=== PATIENT | male | born 1965 | race Caucasian/White ===

== ENCOUNTER → 2018-08-04 12:58 | Outpatient (CLI) | payer MEDICAID, SELFPAY ==
--- NOTE | 2018-08-04 13:02 | CA_ITS ---
PROCEDURE: 2-D M-mode and color Doppler study INDICATIONS FOR THE TEST: Chest pain X COPD Heart Murmur Tobacco SmokingX Palpitations Fatigue Syncope Edema Hypertension Diabetes MellitusX Rheumatic Fever SOB CURTIS Obesity Hyperlipidemia Family History HD Additional History CAD, CVA,MULTIPLE STENTS PATIENT INFORMATION HEIGHT: 70 WEIGHT:212 GENDER: Male B/P:124/55 2-D/M-MODE INTERPRETATION: 2-D MEASUREMENTS OBSERVED VALUES IN CMS Right Ventricular Dimension (RVDd) 2.4 Interventricular Septum (Thickness)(IVsd) .9 Left Ventricular Internal Dimensions(LVIDd) 5.5 Left Ventricular Posterior Wall (Thickness)(LVPWd) .9 Aortic Root 3.9 Aortic Cusp Separation 1.6 Left Atrial Dimensions (LAD) 2.4 2D 1. Left atrium is mildly enlarged, left ventricle is mildly dilated, there is severely reduced left ventricular systolic function, visually estimated ejection fraction approximately 20-25%, there is marked hypo to akinesis involving mid to distal septum, anterior, anteroapical, and anterolateral wall. 2. The right atrium and right ventricle are normal size and contractility. 3. The aortic valve is minimally thickened and fibrosed. 4. The mitral and tricuspid valve leaflets are minimally thickened and calcified. 5. The pulmonic valve is poorly visualized. 6. No significant pericardial effusion noted. DOPPLER INTERROGATION: Doppler interrogation of the aortic, mitral and tricuspid valvular presence of mild mitral and tricuspid regurgitation, tricuspid regurgitation jet velocity is insufficient for calculation of the right ventricular systolic pressure, grade 1 diastolic dysfunction seen without tissue Doppler evidence of raised left atrial pressure. CONCLUSION: 1. Mildly enlarged left atrium, mildly dilated left ventricle, severely reduced left ventricular systolic function, visually estimated ejection fraction of 20-25%, with segmental wall motion abnormality described above. Grade 1 diastolic dysfunction seen without tissue Doppler evidence of raised left atrial pressure. 2. Mild mitral and tricuspid regurgitation 3. No significant pericardial effusion noted
== END ==
PROVIDERS: Family Provider Internal Medicine Adolescent Medicine; PCP Internal Medicine Adolescent Medicine; Visit Provider Internal Medicine Cardiovascular Disease
DX: R07.9 Chest pain, unspecified (principal)
CPT/HCPCS: 93306

== ENCOUNTER → 2019-02-08 12:10 | Outpatient (CLI) | payer MEDICAID, SELFPAY ==
--- NOTE | 2019-02-08 12:17 | XR_ITS ---
XR shoulder RT min 2V HISTORY: Right shoulder pain ITS.REASON: DYSFUNCTION OF RIGHT ROTATOR CUFF ORDERING PHYSICIAN: Bibiana Snyder PATIENT AGE: 53 years Comparison: None FINDINGS: No obvious fracture or dislocation. There is cortical irregularity involving the distal aspect of the clavicle at the acromioclavicular joint. This is nonspecific and could be seen with rheumatoid arthritis. No subacromial stenosis or significant osteophyte formation. IMPRESSION: 1 negative glenohumeral joint. 2. Irregularity of the distal aspect of the clavicle which may be seen with rheumatoid arthritis
== END ==
PROVIDERS: PCP Internal Medicine Adolescent Medicine; Visit Provider Nurse Practitioner Family
DX: M67.911 Unspecified disorder of synovium and tendon, right shoulder (principal)
CPT/HCPCS: 73030

== ENCOUNTER → 2019-02-23 07:47 | Outpatient (CLI) | payer MEDICAID, SELFPAY | PROVIDERS: PCP Nurse Practitioner Family; Visit Provider Nurse Practitioner Family | DX: M67.911 Unspecified disorder of synovium and tendon, right shoulder (principal) ==

== ENCOUNTER → 2019-02-24 07:55 | Outpatient (CLI) | payer MEDICAID, SELFPAY ==
--- NOTE | 2019-02-24 07:57 | MR_ITS ---
MR shoulder RT wo con COMPARISON: None HISTORY: Right shoulder pain with limited range of motion, rotator cuff disease ORDERING PHYSICIAN: Bibiana Snyder APRN PATIENT AGE: 53 years TECHNIQUE: Routine multiplanar multiecho sequences are performed without contrast. COMPARISON: 02/08/2019 radiograph FINDINGS: There is mild motion artifact which somewhat obscures fine detail. Mild hypertrophic changes are present at the acromioclavicular junction. There is some slight increased T2 signal within a thickened supraspinatus tendon consistent with tendinopathy/tendinosis. There is a small focal linear area of increased signal within the infraspinatus tendon suggesting a partial tear. A complete tear with tendinous or muscle retraction is not identified. The subscapularis and teres minor tendons are intact. There does appear to be a tear of the anterior and superior glenoid labrum best detected on the coronal images. Fluid is present within the bicipital tendon sheath. The bicipital tendon is in satisfactory position. No fracture or dislocation. IMPRESSION: 1. Tendinopathy/tendinosis of the supraspinatus and infraspinatus tendons with a partial longitudinal intrasubstance tear of the infraspinatus tendon 2. SLAP tear of the anterior and superior glenoid labrum nondisplaced. 3. Mild acromioclavicular arthropathy 4. Moderate amount fluid within the bicipital tendon sheath consistent with tendinitis
== END ==
PROVIDERS: PCP Nurse Practitioner Family; Visit Provider Nurse Practitioner Family
DX: M67.911 Unspecified disorder of synovium and tendon, right shoulder (principal)
CPT/HCPCS: 73221

== ENCOUNTER → 2020-08-24 13:26 | Outpatient (CLI) | payer OTHER, SELFPAY | PROVIDERS: PCP Internal Medicine Adolescent Medicine; Visit Provider Internal Medicine Adolescent Medicine | DX: Z03.818 Encounter for observation for suspected exposure to other biological agents ruled out (principal); R05 Cough | CPT/HCPCS: U0003 ==

== ENCOUNTER → 2021-04-04 15:43 | Outpatient (CLI) | payer MEDICARE, OTHER, SELFPAY ==
--- NOTE | 2021-04-04 15:50 | XR_ITS ---
PROCEDURE: XR FOREARM LT 2V CLINICAL INDICATION: LT FOREARM PAIN, CELLULITIS OF LT FOREARM COMPARISON: No exams were available for comparison FINDINGS: No fracture or dislocation. No lytic or blastic change. There is normal mineralization. The joint spaces are well-preserved. No significant degenerative/arthritic changes. No erosive changes evident. Other findings:There is a small metallic density within the soft tissues overlying the anterior and lateral aspect the left forearm consistent with a foreign body. This measures 3 mm. IMPRESSION: Metallic foreign body in the mid aspect of the left forearm laterally and anteriorly. Dictated by: Harman Grayson MD 04/04/2021 16:37 Harman Grayson MD in [place] 04/04/2021 16:37
== END ==
PROVIDERS: PCP Nurse Practitioner Family; Visit Provider Nurse Practitioner Family
DX: M79.632 Pain in left forearm (principal); L03.114 Cellulitis of left upper limb
CPT/HCPCS: 73090

== ENCOUNTER → 2021-05-05 09:15 | Outpatient (CLI) | payer MEDICARE, OTHER, SELFPAY ==
[2021-05-05 10:13] LABS: Hemoglobin A1C 9.6 % (4.0-6.0)
[2021-05-05 10:22] LABS: Alanine Aminotransferase 12 U/L (12-78); Albumin Level 4.3 g/dl (3.5-5.0); Albumin/Globulin Ratio 1.8 (1.1-1.8); Alkaline Phosphatase 131 U/L (38-126); Aspartate Amino Transferase 16 U/L (17-59); Bilirubin,Total 1.2 mg/dl (0.2-1.3); Blood Urea Nitrogen 14 mg/dl (9-20); Calcium 9.3 mg/dl (8.4-10.2); Carbon Dioxide 28 mmol/L (22.0-30.0); Chloride 104 mmol/L (98-107); Chol/HDL Ratio 3.5 (1-3.5); Cholesterol 163 mg/dl (140-200); Estimated Glomerular Filt Rate 69 ml/min (>60); GFR (African American) 84 ML/MIN (>60); Globulin 2.4 g/dL (1.3-3.2); Glucose 234 mg/dl (74-100); HDL Cholesterol 46 mg/dl (40-60); Sodium 140 mmol/L (136-145); Total Protein,Serum 6.7 g/dl (6.3-8.2); Triglycerides 118 mg/dl (30-150); VLDL Cholesterol 24 mg/dL (0-40)
== END ==
PROVIDERS: Visit Provider Nurse Practitioner Family
DX: I10 Essential (primary) hypertension (principal); E11.65 Type 2 diabetes mellitus with hyperglycemia; Z86.79 Personal history of other diseases of the circulatory system; Z79.84 Long term (current) use of oral hypoglycemic drugs
CPT/HCPCS: 36415; 80053; 80061; 83036

== ENCOUNTER → 2022-11-05 10:04 | Outpatient (POV) | payer MEDICARE, OTHER, SELFPAY | PROVIDERS: Visit Provider Dermatology | DX: Z00.00 Encounter for general adult medical examination without abnormal findings (principal) ==

== ENCOUNTER → 2023-05-14 07:02 | Outpatient (CLI) | payer MEDICARE, SELFPAY ==
[2023-05-14 07:27] LABS: Basophils # 0.1 K/mm3 (0-0.2); Eosinophils # 0.2 K/mm3 (0.0-0.4); Eosinophils % 2.8 % (0.1-12.0); Hematocrit 42.6 % (42.0-52.0); Hemoglobin 14.2 g/dL (14.1-18.0); Lymphocytes % 28.4 % (10-50); Mean Corpuscular HGB Conc 33.3 g/dL (31.8-35.4); Mean Corpuscular Hemoglobin 28.2 pg (27.0-31.2); Mean Corpuscular Volume 84.7 fl (80-94); Mean Platelet Volume 7.7 fl (7.4-10.4); Monocytes # 0.5 K/mm3 (0.1-1.0); Monocytes % 6.6 % (1.7-9.3); Neutrophils # 4.4 K/mm3 (1.8-7.8); Neutrophils % 61.2 % (37.0-80.0); Platelet Count 268 K/mm3 (142-424); Red Blood Count 5.03 M/mm3 (4.60-6.20); Red Cell Distribution Width 14.5 % (11.5-17.5); White Blood Count 7.2 K/mm3 (4.8-10.8)
[2023-05-14 08:12] LABS: Alanine Aminotransferase 21 U/L (12-78); Albumin Level 4.2 g/dl (3.5-5.0); Albumin/Globulin Ratio 1.8 (1.1-1.8); Alkaline Phosphatase 113 U/L (38-126); Anion Gap 10.1 mEq/L (5-15); Aspartate Amino Transferase 23 U/L (17-59); Bilirubin,Total 1.5 mg/dl (0.2-1.3); Blood Urea Nitrogen 14 mg/dl (9-20); Calcium 8.9 mg/dl (8.4-10.2); Carbon Dioxide 25 mmol/L (22.0-30.0); Chloride 106 mmol/L (98-107); Chol/HDL Ratio 3.1 (1-3.5); Cholesterol 132 mg/dl (140-200); Estimated Glomerular Filt Rate 77 ml/min (>60); GFR (African American) 93 ML/MIN (>60); Globulin 2.4 g/dL (1.3-3.2); Glucose 247 mg/dl (74-100); HDL Cholesterol 43 mg/dl (40-60); Potassium 4.1 mmoL/L (3.5-5.1); Sodium 137 mmol/L (136-145); Total Protein,Serum 6.6 g/dl (6.3-8.2); Triglycerides 148 mg/dl (30-150); VLDL Cholesterol 30 mg/dL (0-40)
[2023-05-14 08:24] LABS: Direct LDL Cholesterol 64.64 mg/dL (100-129)
[2023-05-14 09:11] LABS: Creatinine,Urine Random 79 mg/dL (Not Estab.)
[2023-05-14 09:18] LABS: Microalbumin/Creatinine Ratio 17.5
== END ==
PROVIDERS: PCP Nurse Practitioner Family; Visit Provider Nurse Practitioner Family
DX: I10 Essential (primary) hypertension (principal); E11.65 Type 2 diabetes mellitus with hyperglycemia; Z79.84 Long term (current) use of oral hypoglycemic drugs; Z86.79 Personal history of other diseases of the circulatory system
CPT/HCPCS: 36415; 80053; 80061; 82043; 82570; 83036; 85025

== ENCOUNTER → 2023-05-15 10:12 | Outpatient (CLI) | payer MEDICARE, SELFPAY ==
--- NOTE | 2023-05-15 10:23 | XR_ITS ---
FINAL REPORT CLINICAL HISTORY: RT FOOT PAIN FINDINGS: RIGHT FOOT SERIES Three views of the right foot were obtained. There is no acute fracture or dislocation. There are mild degenerative change. There is no soft tissue abnormality. There is a plantar calcaneal spur. A pes planus deformity is noted. IMPRESSION: Mild degenerative change as stated above. Reviewed, Interpreted and Dictated by Marcial Perez III, MD Transcribed by Shaina Somers Authenticated and [facility]
--- NOTE | 2023-05-15 10:23 | XR_ITS ---
FINAL REPORT CLINICAL HISTORY: LT FOOT PAIN FINDINGS: LEFT FOOT SERIES Three views of the left foot were obtained. There is no acute fracture or dislocation. There are mild degenerative change. There is no soft tissue abnormality. There is a plantar calcaneal spur. A pes planus deformity is noted. IMPRESSION: Mild degenerative change as stated above. Reviewed, Interpreted and Dictated by Marcial Perez III, MD Transcribed by Shaina Somers Authenticated and . [facility]
== END ==
LOC: RAD 10:14
PROVIDERS: PCP Nurse Practitioner Family; Visit Provider Nurse Practitioner Family
DX: M79.671 Pain in right foot (principal); M79.672 Pain in left foot
CPT/HCPCS: 73630

== ENCOUNTER 2024-02-19 07:40 | Outpatient (CLI) | payer MEDICARE, SELFPAY ==
--- NOTE | 2024-02-19 07:54 | XR_ITS ---
FINAL REPORT CLINICAL HISTORY: LT KNEE PAIN COMPARISON: None FINDINGS: LEFT KNEE 3 views of the left knee were obtained. There is no acute fracture or dislocation. There is mild narrowing of the medial compartment joint space. Soft tissues are unremarkable. IMPRESSION: Mild degenerative change without acute bony abnormality. Reviewed, Interpreted and Dictated by Taz Vernon MD Transcribed by Norma Angel Authenticated and [facility]
== END 2024-02-19 23:59 ==
LOC: RAD 07:43
PROVIDERS: PCP Nurse Practitioner Family; Visit Provider Nurse Practitioner Family
DX: M25.562 Pain in left knee (principal)
CPT/HCPCS: 73562

== ENCOUNTER 2024-12-30 09:04 | Emergency (ER) | payer MEDICARE, SELFPAY ==
[2024-12-30 09:04] VITALS: BP 138/82; PULSE 88; RESP 18; TEMP 36.6; O2SAT 98; BMI 29.0
--- NOTE | 2024-12-30 09:08 | ECG_ITS ---
APPROVED REPORT Exam: Resting ECG HR:82 bpm ECG Measurements Heart Rate 82 AXES MN 140 P 75 QRSd 109 QRS 60 QT 357 T 88 QTc 395 Conclusion SINUS RHYTHM WITH OCCASIONAL VENTRICULAR PREMATURE COMPLEXES POSSIBLE ANTERIOR MYOCARDIAL INFARCTION , PROBABLY OLD [30 ms Q WAVE IN V3/V4, OR R < 0.2 mV IN V4] No STEMI Electronically signed by : CORBY MODI, 12/31/2024 07:08:35
--- NOTE | 2024-12-30 09:10 | PC.NURSE ---
RADIOLOGY NOTIFIED OF STROKE PROTOCOL
--- NOTE | 2024-12-30 09:10 | PC.NURSE ---
FSBS is 279 at this time.
--- NOTE | 2024-12-30 09:13 | CT_ITS ---
FINAL REPORT CLINICAL HISTORY: STROKE SYMPTOMS COMPARISON: None FINDINGS: CT NECK ANGIO, WITHOUT AND WITH CONTRAST TECHNIQUE: Thin section axial CT with contrast with multiplanar 3D MIP reconstruction. This study was performed with techniques to keep radiation doses as low as reasonably achievable, (ALARA). Individualized dose reduction techniques using automated exposure control or adjustment of mA and/or kV according to the patient's size were employed. NASCET criteria and technique was utilized during interpretation. FINDINGS: Aortic arch: Arch shows no significant narrowing. Great vessel origins are widely patent. Right carotid: Minimal plaque is present in the right common and internal carotid arteries without significant stenosis. Left carotid: There is mild proximal ICA stenosis of 20 to 30%. Vertebrals: Left vertebral artery is dominant. No significant stenosis is present. IMPRESSION: No significant stenosis of the cervical carotid arteries This study was performed using automated techniques to achieve radiation exposure as low as reasonably Reviewed, Interpreted and Dictated by Odette Laurent MD Transcribed by Jemma Ceja Authenticated and . [facility]
--- NOTE | 2024-12-30 09:13 | CT_ITS ---
FINAL REPORT TECHNIQUE: Noncontrast exam This study was performed with techniques to keep radiation doses as low as reasonably achievable, (ALARA). Individualized dose reduction techniques using automated exposure control or adjustment of mA and/or kV according to the patient's size were employed. CLINICAL HISTORY: STROKE SYMPTOMS COMPARISON: None FINDINGS: CT HEAD: There are small chronic lacunar infarcts noted in the basal ganglia bilaterally, more prominent on the left than on the right. No acute areas of abnormal density are visualized. Ventricles are normal. There is no hemorrhage. No mass effect is seen. Bone windows show no evidence of fracture. IMPRESSION: No acute findings. Small bilateral chronic lacunar infarcts, more prominent on the left than on the right. Reviewed, Interpreted and Dictated by Odette Laurent MD Transcribed by Jemma Ceja Authenticated and [facility]
--- NOTE | 2024-12-30 09:14 | PC.NURSE ---
PT TO CT VIA WC
--- NOTE | 2024-12-30 09:15 | PC.NURSE ---
patient gone to CT at this time.
--- NOTE | 2024-12-30 09:17 | CT_ITS ---
FINAL REPORT CLINICAL HISTORY: L weakness, slurred speech COMPARISON: None FINDINGS: CTA HEAD TECHNIQUE: Thin section axial CT with contrast with 3D MIP reconstruction This study was performed with techniques to keep radiation doses as low as reasonably achievable, (ALARA). Individualized dose reduction techniques using automated exposure control or adjustment of mA and/or kV according to the patient's size were employed. FINDINGS: No aneurysm is seen. Major intracranial vessels are patent without significant stenosis. . IMPRESSION: Unremarkable This study was performed using automated techniques to achieve radiation exposure as low as reasonably achievable Reviewed, Interpreted and Dictated by Odette Laurent MD Transcribed by Jemma Ceja Authenticated and [facility]
[2024-12-30 09:23] LABS: Basophils # 0.1 K/mm3 (0-0.2); Basophils % 0.5 % (0.1-2.0); Eosinophils # 0.1 K/mm3 (0.0-0.4); Eosinophils % 1.3 % (0.1-12.0); Hematocrit 42.6 % (42.0-52.0); Hemoglobin 14.5 g/dL (14.1-18.0); Lymphocytes # 1.6 K/mm3 (0.7-4.5); Mean Corpuscular Hemoglobin 27.6 pg (27.0-31.2); Mean Platelet Volume 9.2 fl (7.4-10.4); Monocytes # 0.6 K/mm3 (0.1-1.0); Monocytes % 6.9 % (1.7-9.3); Neutrophils # 6.6 K/mm3 (1.8-7.8); Neutrophils % 72.1 % (37.0-80.0); Platelet Count 256 K/mm3 (142-424); Red Blood Count 5.26 M/mm3 (4.60-6.20); Red Cell Distribution Width 13.8 % (11.5-17.5); White Blood Count 9.1 K/mm3 (4.8-10.8)
[2024-12-30 09:30] LABS: Alanine Aminotransferase 20 U/L (12-78); Albumin Level 4.6 g/dl (3.5-5.0); Albumin/Globulin Ratio 1.8 (1.1-1.8); Alkaline Phosphatase 115 U/L (38-126); Anion Gap 11.3 mEq/L (5-15); Aspartate Amino Transferase 26 U/L (17-59); Bilirubin,Total 2.1 mg/dl (0.2-1.3); Blood Urea Nitrogen 15 mg/dl (9-20); Calcium 9.5 mg/dl (8.4-10.2); Carbon Dioxide 26 mmol/L (22.0-30.0); Chloride 103 mmol/L (98-107); Cholesterol 181 mg/dl (140-200); Creatinine Clearance Estimated 98 mL/min (50-200); Estimated Glomerular Filt Rate 68 ml/min (>60); Ethyl Alcohol < 10 mg/dl (0-10); GFR (African American) 83 ML/MIN (>60); Globulin 2.6 g/dL (1.3-3.2); Glucose 269 mg/dl (74-100); HDL Cholesterol 36 mg/dl (40-60); Potassium 4.3 mmoL/L (3.5-5.1); Sodium 136 mmol/L (136-145); Total Protein,Serum 7.2 g/dl (6.3-8.2); Triglycerides 96 mg/dl (30-150); VLDL Cholesterol 19 mg/dL (0-40)
[2024-12-30] MEDS: IOPAMIDOL-370 (76%);100ML BOTTLE 80 ML IV (09:30)
[2024-12-30] MEDS: SODIUM CHLORIDE 0.9% 10ML SYR (RAD ONLY) 10 ML IV (09:30)
[2024-12-30] MEDS: 0.9 % SODIUM CHLORIDE 50 ML VIAL IV (09:30)
--- NOTE | 2024-12-30 09:30 | PC.NURSE ---
patient back in room at this time.
[2024-12-30 09:41] LABS: Direct LDL Cholesterol 94.92 mg/dL (100-129)
--- NOTE | 2024-12-30 09:47 | PC.NURSE ---
ROUNDED ON PT, WATCHING TV. NO NEEDS AT THIS TIME. CALL LIGHT WITHIN REACH
[2024-12-30 09:50] LABS: Troponin I < 0.01 ng/ml (0.00-0.034)
--- NOTE | 2024-12-30 09:50 | PC.NURSE ---
Rounded on patient, pillow given at this time.
[2024-12-30 09:51] LABS: Activated Partial Thrombo Time 27.1 seconds (22.8-30.6); Prothrombin Time 11.2 seconds (10.1-12.5)
[2024-12-30 10:00] VITALS: BP 122/73; PULSE 77; RESP 22; O2SAT 100
--- NOTE | 2024-12-30 10:23 | MR_ITS ---
FINAL REPORT TECHNIQUE: Multiplanar MR without contrast CLINICAL HISTORY: new L weakness, slurred speech, stroke eval COMPARISON: None FINDINGS: Diffusion sequences show a 10 mm acute infarct in the right lateral lavonne. No associated hemorrhage is identified. Scattered scattered chronic lacunar infarcts and mild changes of microvascular disease are present bilaterally. Moderate generalized atrophy is present. No mass, hemorrhage or edema is seen. Ventricles are normal. Major vascular flow voids are intact. IMPRESSION: Acute infarct in the right lateral lavonne measuring 10 mm in size. Scattered chronic lacunar infarcts and mild changes of ischemic microvascular disease bilaterally. Reviewed, Interpreted and Dictated by Odette Laurent MD Transcribed by Jemma Ceja Authenticated and [facility]
--- NOTE | 2024-12-30 10:24 | PC.NURSE ---
SPOKE WITH FERNY IN CARE MANAGEMENT FOR OK FOR BRAIN MRI
--- NOTE | 2024-12-30 10:27 | HMH.EDGENADL ---
Discharge Plan Disposition Patient Disposition: Home, Self-Care Condition: Good Prescriptions Prescriptions: No Action Jardiance 25 mg tablet PO Tradjenta 5 mg tablet PO carvedilol 3.125 mg tablet PO rosuvastatin 10 mg tablet PO Patient Comments: TAKE ONE TABLET BY MOUTH EVERY DAY losartan 25 mg tablet PO Patient Comments: TAKE ONE TABLET BY MOUTH EVERY DAY aspirin 325 MG tablet 325 mg PO DAILY clopidogrel 75 MG tablet 75 mg PO DAILY Patient Comments: take 1 tablet by mouth once daily Referrals Follow up/Referrals: Kike Ruth MD [Staff Physician] - See instructions Provider,MD Keli [Primary Care Provider] - See instructions Activity Restrictions/Add. Instructions Additional Instructions/Restrictions: You were evaluated in the emergency department today and diagnosed with an acute stroke. Please follow-up closely with cardiology as well as with primary care. Continue taking your medications at home as prescribed. Return to the emergency department for new or worsening symptoms. Clinical Impressions Clinical Impression: Right pontine CVA Instructions Patient Instructions: DI for Stroke-Ischemic Print Language Print Language: Khmer Discharge ED Provider: Naomi Cristobal General Adult HPI General Chief complaint: Neuro Symptoms/Deficit Stated complaint: weakness L side, poss stroke Time Seen by Provider: 12/30/24 09:18 Mode of Arrival: Wheelchair Source of Information: Patient Limitations: No Limitations Description of Symptoms (Recalled from ER Triage Doc. by RN): PT REPORTS WORSENING LEFT SIDED WEAKNESS. REPORTS LEFT ARM AND LEG WEAKNESS THAT STARTED 2 DAYS AGO. REPORTS TODAY THAT SPEECH IS SLURRED AND LEFT SIDE OF FACE HAS DROOP REPORTS HX OF TIA. PT MOVES ALL EXTREMITIES. 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 DROOP NOTED ON LEFT SIDE OF FACE WHEN SMILING History of Present Illness HPI narrative: This patient is a 59-year-old male with a history of prior CVA, CAD status post CABG, type 2 diabetes, hypertension, hyperlipidemia presenting to the emergency department for evaluation with concern for left-sided weakness and slurred speech. Patient states that he has had intermittent issues with his left leg/dragging his heel for quite a while now, however he had new sensation of numbness and tingling all along the entire left side of his body and slurred speech that started 2 days ago. He states that he feels like he has restless legs on the whole left side of his body. Symptoms have improved a little bit, but he still feels like something is off over there and feels like he is trying to move his arm and leg to wake them up. No headache, vision changes, chest pain, abdominal pain, back pain, or other concerns. Related Data Home Medications ?Medication ?Instructions ?Recorded ?Confirmed aspirin 325 mg tablet 325 mg PO DAILY [facility] 05/28/18 03/09/24 clopidogrel 75 mg tablet 75 mg PO DAILY [facility] 05/28/18 03/09/24 carvedilol 3.125 mg tablet mg PO 03/09/24 03/09/24 empagliflozin 25 mg tablet mg PO 03/09/24 03/09/24 (Jardiance) linagliptin 5 mg tablet (Tradjenta) mg PO 03/09/24 03/09/24 losartan 25 mg tablet mg PO 03/09/24 03/09/24 rosuvastatin 10 mg tablet mg PO 03/09/24 03/09/24 Allergies Allergy/AdvReac Type Severity Reaction Status Date / Time codeine (CODEINE) Allergy Unknown Verified 03/09/24 09:11 [facility] Disclaimer: The information contained in this section may have been updated after the patient was seen, as this information can be updated by other users. Social History Smoking Status: Current every day smoker alcohol intake: never current occupational status: other Travel in the last 8 weeks: None ROS Obtained: Yes All systems reviewed & no additional complaints except as documented Physical Exam General General appearance: alert and in no apparent distress Head Head exam: atraumatic and normocephalic Eye Eye exam: Present normal appearance, PERRL and EOMI ENT ENT exam: Present normal exam, normal oropharynx, mucous membranes moist and normal external ear exam Neck Neck exam: Present normal inspection, full ROM and trachea midline; Absent tenderness Chest Chest inspection: Present normal inspection and symmetric chest wall rise; Absent tenderness Respiratory Respiratory exam: Present normal lung sounds bilaterally; Absent respiratory distress, wheezes, stridor or accessory muscle use Cardiovascular Cardiovascular exam: Present regular rate and normal rhythm Abdominal Exam Abdominal exam: Present soft; Absent distention, tenderness or guarding Extremities Exam Extremities exam: Present normal inspection, full ROM and normal capillary refill; Absent tenderness or edema Back Exam Back exam: Present normal inspection and full ROM; Absent tenderness Neurological Exam Neurological exam: Present alert, oriented X3, CN II-XII intact, normal gait, motor sensory deficit and other (Drift but does not have bed of the left upper left lower extremity, no other notable focal neurologic deficits on exam. NIHSS 2) Psychiatric Psychiatric exam: Present normal affect and normal mood Skin Skin exam: Present warm and dry Medical Decision Making Medical Records Medical records reviewed: Yes I reviewed the patient's medical records. Screening: Per USPSTF and CDC recommendations, given the prevalence of disease in our region, it is our hospital?s policy to screen for HIV and viral Hepatitis for all patients aged 18 and over and those with ongoing risk factors. [place]o Inquiry Pt receiving controlled substance: No Vital Signs: 12/30/24 09:04 12/30/24 10:00 12/30/24 14:14 Temperature 97.9 F 97.8 F Temperature Source Oral Oral Pulse Rate 77 86 Pulse Rate [Apical] 88 Respiratory Rate 18 22 20 Blood Pressure 122/73 106/88 L Blood Pressure [Right Arm] 138/82 Blood Pressure Mean [Right Arm] 100 Blood Pressure Source Automatic Cuff Blood Pressure Source [Right Arm] Automatic Cuff Blood Pressure Position [Right Arm] Sitting 02 Sat by Pulse Oximetry 98 100 Oxygen Delivery Method Room Air Room Air Lab Data Lab results reviewed: Yes I reviewed the patient's lab results. Lab Results 12/30/24 09:10: HCV Ab ADDIS w/Rflx PCR Qn Negative, HIV Ag/Ab Combo Qual Negative 12/30/24 09:15: WBC 9.1, RBC 5.26, Hgb 14.5, Hct 42.6, MCV 81.0, MCH 27.6, MCHC 34.0, RDW 13.8, Plt Count 256, MPV 9.2, Neut % (Auto) 72.1, Lymph % (Auto) 18.0, [place] % (Auto) 6.9, Eos % (Auto) 1.3, Baso % (Auto) 0.5, Neut # (Auto) 6.6, Lymph # (Auto) 1.6, [place] # (Auto) 0.6, Eos # (Auto) 0.1, Baso # (Auto) 0.1, PT 11.2, INR 1.00, APTT 27.1, Sodium 136, Potassium 4.3, Chloride 103, Carbon Dioxide 26, Anion Gap 11.3, BUN 15, Creatinine 1.10, Estimated Creat Clear 98, Estimated GFR 68, Est GFR ( Amer) 83, Glucose 269 H, Calcium 9.5, Total Bilirubin 2.1 H, AST 26, ALT 20, Alkaline Phosphatase 115, Troponin I < 0.01, Total Protein 7.2, Albumin 4.6, Globulin 2.6, Albumin/Globulin Ratio 1.8, Triglycerides 96, Cholesterol 181, LDL Cholesterol Direct 94.92 L, VLDL Cholesterol 19, HDL Cholesterol 36 L, Cholesterol/HDL Ratio 5.0 H, Plasma/Serum Alcohol < 10 12/30/24 12:10: Urine Color Yellow, Urine Appearance Clear, Urine pH 6.0, Ur Specific [place] 1.010, Urine Protein Negative, Urine Glucose (UA) 3+, Urine Ketones 1+, Urine Blood Negative, Urine Nitrate Negative, Urine Bilirubin Negative, Urine Urobilinogen 0.2, Ur Leukocyte Esterase Negative, Urine RBC None, Urine WBC None, Ur Squamous Epith Cells None, Urine Bacteria None, Urine Opiates Screen Negative, Urine Methadone Screen Negative, Ur Barbituates Screen Negative, Ur Phencyclidine Scrn Negative, Ur Amphetamines Screen Negative, U Benzodiazepines Scrn Negative, Urine Cocaine Screen Negative, U Marijuana (THC) Screen Positive H 12/30/24 12:21: Troponin I < 0.01 12/30/24 09:15 12/30/24 09:15 Orders (Tests/Meds): ED MEDICATIONS Discontinued Medications Generic Name Dose Route Start Last Admin Trade Name Freq PRN Reason Stop Dose Admin Iopamidol 80 ml 12/30/24 09:29 12/30/24 09:30 Iopamidol-370 (76%);100ml Bottle IV 12/30/24 09:30 80 ml ONCE ONE Administration Sodium Chloride 10 ml 12/30/24 09:17 Sodium Chloride 0.9% 10ml Flush Syringe IV 01/29/25 09:16 NEEDED PRN Maintain IV Site Sodium Chloride 50 ml 12/30/24 09:29 12/30/24 09:30 0.9 % Sodium Chloride 50 Ml Vial IV 12/30/24 09:30 50 ml ONCE ONE Administration Sodium Chloride 10 ml 12/30/24 09:29 12/30/24 09:30 Sodium Chloride 0.9% 10ml Syr (Rad Only) IV 12/30/24 09:30 10 ml ONCE ONE Administration ORDERS Category Date Time Status CT angio head Stat Cat Scan 12/30/24 09:[address] angio neck Stat Cat Scan 12/30/24 09:[address] head/brain wo con Stat Cat Scan 12/30/24 09:13 Completed Activated Partial Thrombo Time Stat Lab 12/30/24 09:15 Completed Complete Blood Count Auto Diff Stat Lab 12/30/24 09:15 Completed Comprehensive Metabolic Panel Stat Lab 12/30/24 09:15 Completed Drug Screen,Urine Stat Lab 12/30/24 12:10 Completed Ethyl Alcohol Stat Lab 12/30/24 09:15 Completed HIV Combo Stat Lab 12/30/24 09:10 Completed Hepatitis C Ab Qual. W/ RFX Stat Lab 12/30/24 09:10 Completed Lipid Panel Stat Lab 12/30/24 09:15 Completed Prothrombin Time INR Stat Lab 12/30/24 09:15 Completed Troponin I Q3H Lab 12/30/24 12:21 Completed Troponin I Stat Lab 12/30/24 09:15 Completed Urinalysis and Microscopic Stat Lab 12/30/24 12:10 Completed ECG Data Tracing #1: I reviewed this ECG and interpreted as documented below: Normal sinus rhythm ventricular rate of [address] changes concerning for ischemia. Occasional premature complexes noted ECG initial impression date: 12/30/24 ECG initial impression time: 09:10 Medical Decision Narrative: In summary, this patient is a 59-year-old male presenting to the Emergency Department for evaluation of left-sided weakness, tingling, slurred speech. Differential diagnoses considered include but are not limited to CVA, intracranial hemorrhage, intracranial mass, other stroke mimic. Ruling out the most morbid conditions drove assessment. It should be noted patient's history includes prior CVA, CAD status post CABG, hypertension, hyperlipidemia, diabetes which likely are not at goal therapy. This complicates all aspects of care by increasing patient's risk for morbidity. Patient arrives with complaints of left-sided weakness/tingling and slurred speech that started 2 days ago. NIH stroke scale is 2 upon assessment. Workup included stroke CT scans as well as lab evaluation to evaluate for infectious, metabolic, cardiac derangements. I independently interpreted CT scans of the head and neck prior to the radiologist read and noted no obvious large vessel occlusion, no large space-occupying brain lesion or intracranial hemorrhage. Please see their read for final interpretation. They note old bilateral lacunar infarcts. Labs were obtained that demonstrated reassuring CBC with no significant leukocytosis, reassuring chemistry with normal kidney function and no significant electrolyte derangements. EKG obtained is reassuring with no ischemia. I considered tPA/TNK, however patient presents outside of window. I considered thrombectomy, however patient also presents outside of window and has no large vessel occlusion. After shared decision-making with the patient, he is agreeable to obtain brain MRI for further evaluation and management. He is already medically managed on aspirin, plavix and statin for optimization and further stroke prevention. MRI was obtained and is concerning for an acute pontine stroke according to my interpretation. Please see radiology read for final interpretation. Patient otherwise has had reassuring workup and has had no worsening or changes symptoms since has been here. I had an interactive discussion with Dr. Rosas with hospital medicine who advised that if we can get PT/OT evaluation here and they recommended discharge home, he felt the patient would likely be appropriate for discharge home since he is already on medical management. His comorbidities can be optimized as an outpatient. Patient is agreeable with this. PT/OT evaluated the patient and recommended going home. Patient did not want home health set up or placement for rehab. Ultimately after hospitalist evaluation, it was deemed the patient is appropriate for discharge home. Strict return precautions were given as well as referral for outpatient PT/OT. I also did refer him to cardiology given he has not followed up recently. Critical Care Critical Care Time Critical Care Time: Yes Attestation: On 12/30/24, the high probability of a clinically significant, sudden or life threatening deterioration of the following system(s) required my full and direct attention, intervention and personal management. The time I documented below is in addition to time spent performing reported procedures but includes the following listed in this critical care notation. Total Time Total Critical Care Time: 50
--- NOTE | 2024-12-30 10:29 | PC.NURSE ---
PT PREPPED FOR MRI
--- NOTE | 2024-12-30 10:42 | PC.NURSE ---
rounded on the pt. the pt voices that he does not need anything at this time. call light is within reach of the pt. family member is present at the bedside.
--- NOTE | 2024-12-30 10:47 | PC.NURSE ---
patient gone for MRI at this time.
--- NOTE | 2024-12-30 10:47 | PC.NURSE ---
Pt to MRI via wheelchair
[2024-12-30 11:08] LABS: HIV Combo NEGATIVE (Negative)
[2024-12-30 11:16] LABS: Hepatitis C Ab Qual. W/ RFX NEGATIVE (Negative)
[2024-12-30 12:15] LABS: Microscopic, Urine URINE MICROSCOPIC (MICROSCOPIC)
[2024-12-30 12:35] LABS: Appearance,Urine CLEAR (Clear); Bilirubin,Urine Negative (Negative); Blood, Urine Negative (Negative); Color,Urine YELLOW (Yellow); Glucose,Urine (UA) 3+ (Negative); Ketones,Urine 1+ (Negative); Leukocyte Esterase,Urine Negative (Negative); Nitrate,Urine Negative (Negative); Protein,Urine Negative (Negative); Urobilinogen,Urine 0.2 EU/dl (0.2)
--- NOTE | 2024-12-30 12:43 | PC.NURSE ---
rehab notified of pt/ot order
[2024-12-30 12:46] LABS: Amphetamine/Metha Screen,Urine Negative ng/ml (<1000)
[2024-12-30 12:47] LABS: Barbiturates Screen,Urine Negative ng/ml (<200); Benzodiazepines Screen,Urine Negative ng/ml (<200)
[2024-12-30 12:48] LABS: Cannabinoid Screen,Urine Positive ng/ml (<50)
[2024-12-30 12:49] LABS: Cocaine Screen,Urine Negative ng/ml (<300); Methadone Screen,Urine Negative ng/ml (<300)
[2024-12-30 12:50] LABS: Opiate Screen,Urine Negative ng/ml (<300); Phencyclidine Screen,Urine Negative ng/ml (<25)
[2024-12-30 12:52] LABS: Troponin I < 0.01 ng/ml (0.00-0.034)
--- NOTE | 2024-12-30 13:11 | PC.NURSE ---
pt/ot at bedside
--- NOTE | 2024-12-30 13:11 | PC.NURSE ---
PT in room at this time.
--- NOTE | 2024-12-30 13:12 | PC.NURSE ---
PT/OT in room at this time for eval.
--- NOTE | 2024-12-30 13:17 | PC.NURSE ---
rounded on the pt. the pt voices that he does not need anything at this time. call light is within reach of the pt family member is present at the bedside.
--- NOTE | 2024-12-30 13:41 | EXP.MED.CON ---
[facility] Disclaimer: The information contained in this section may have been updated after the patient was seen, as this information can be updated by other users. Social History Smoking Status: Current every day smoker alcohol intake: never current occupational status: other Travel in the last 8 weeks: None Have you lived/traveled outside [place] in past 30 days?: No Contact w/someone who lives/traveled outside US past 30 days?: No Exposure to someone with infectious disease in past 14 days?: No Do you have a fever (greater than 100.4 F or 38 C)?: No Have you tested positive for COVID-19: No Exposed to someone with COVID-19 in past 14 days?: No Do you have a sore throat?: No Do you have a cough?: No Do you have any weakness?: Yes Do you have any diarrhea?: No Are you experiencing any unusual bleeding?: No Do you have any muscle aches/pain?: No Do you have any abdominal pain?: No Are you experiencing loss of taste or smell?: No Exam Data for Last 24 hours Vital signs and Labs for Last 24 Hours: Temp Pulse Resp BP Pulse Ox O2 Del Method 97.9 F 77 22 122/73 100 Room Air 12/30/24 09:04 12/30/24 10:00 12/30/24 10:00 12/30/24 10:00 12/30/24 10:00 12/30/24 09:04 Laboratory Results - last 24 hr 12/30/24 09:10: HCV Ab ADDIS w/Rflx PCR Qn Negative, HIV Ag/Ab Combo Qual Negative 12/30/24 09:15: WBC 9.1, RBC 5.26, Hgb 14.5, Hct 42.6, MCV 81.0, MCH 27.6, MCHC 34.0, RDW 13.8, Plt Count 256, MPV 9.2, Neut % (Auto) 72.1, Lymph % (Auto) 18.0, [place] % (Auto) 6.9, Eos % (Auto) 1.3, Baso % (Auto) 0.5, Neut # (Auto) 6.6, Lymph # (Auto) 1.6, [place] # (Auto) 0.6, Eos # (Auto) 0.1, Baso # (Auto) 0.1, PT 11.2, INR 1.00, APTT 27.1, Sodium 136, Potassium 4.3, Chloride 103, Carbon Dioxide 26, Anion Gap 11.3, BUN 15, Creatinine 1.10, Estimated Creat Clear 98, Estimated GFR 68, Est GFR ( Amer) 83, Glucose 269 H, Calcium 9.5, Total Bilirubin 2.1 H, AST 26, ALT 20, Alkaline Phosphatase 115, Troponin I < 0.01, Total Protein 7.2, Albumin 4.6, Globulin 2.6, Albumin/Globulin Ratio 1.8, Triglycerides 96, Cholesterol 181, LDL Cholesterol Direct 94.92 L, VLDL Cholesterol 19, HDL Cholesterol 36 L, Cholesterol/HDL Ratio 5.0 H, Plasma/Serum Alcohol < 10 12/30/24 12:10: Urine Color Yellow, Urine Appearance Clear, Urine pH 6.0, Ur Specific [place] 1.010, Urine Protein Negative, Urine Glucose (UA) 3+, Urine Ketones 1+, Urine Blood Negative, Urine Nitrate Negative, Urine Bilirubin Negative, Urine Urobilinogen 0.2, Ur Leukocyte Esterase Negative, Urine RBC None, Urine WBC None, Ur Squamous Epith Cells None, Urine Bacteria None, Urine Opiates Screen Negative, Urine Methadone Screen Negative, Ur Barbituates Screen Negative, Ur Phencyclidine Scrn Negative, Ur Amphetamines Screen Negative, U Benzodiazepines Scrn Negative, Urine Cocaine Screen Negative, U Marijuana (THC) Screen Positive H 12/30/24 12:21: Troponin I < 0.01 I & O for Last 24 hours: Intake & Output 12/27/24 12/28/24 12/29/24 12/30/24 23:59 23:59 23:59 23:59 Weight 97.069 kg Meds Home Medications and Allergies Home Medications ?Medication ?Instructions ?Recorded ?Confirmed ?Type aspirin 325 mg tablet 325 mg PO DAILY [facility] health 05/28/18 03/09/24 History clopidogrel 75 mg tablet 75 mg PO DAILY [facility] 05/28/18 03/09/24 History carvedilol 3.125 mg tablet mg PO 03/09/24 03/09/24 History empagliflozin 25 mg tablet mg PO 03/09/24 03/09/24 History (Jardiance) linagliptin 5 mg tablet (Tradjenta) mg PO 03/09/24 03/09/24 History losartan 25 mg tablet mg PO 03/09/24 03/09/24 History rosuvastatin 10 mg tablet mg PO 03/09/24 03/09/24 History New Prescriptions to Start Prescriptions: Allergies Allergy/AdvReac Type Severity Reaction Status Date / Time codeine (CODEINE) Allergy Unknown Verified 03/09/24 09:11 Results Labs 12/30/24 09:15 12/30/24 09:15 Labs: Abnormal lab results 12/30/24 12/30/24 Range/Units 09:15 12:10 Glucose 269 H (74-100) mg/dl Total Bilirubin 2.1 H (0.2-1.3) mg/dl LDL Cholesterol Direct 94.92 L (100-129) mg/dL HDL Cholesterol 36 L (40-60) mg/dl Cholesterol/HDL Ratio 5.0 H (1-3.5) U Marijuana (THC) Screen Positive H (<50) ng/ml H & H 12/30/24 Range/Units 09:15 Hgb 14.5 (14.1-18.0) g/dL Hct 42.6 (42.0-52.0) % Coagulation 12/30/24 Range/Units 09:15 INR 1.00 (0.9-1.1) All other labs normal.
--- NOTE | 2024-12-30 13:47 | PC.NURSE ---
rounded on pt, updated on poc. call light within reach. no needs at this time
--- NOTE | 2024-12-30 13:49 | PC.NURSE ---
Dr Rosas at bedside
--- NOTE | 2024-12-30 13:51 | PC.NURSE ---
dr nieto at bedside
--- NOTE | 2024-12-30 13:56 | HMH.PTEV ---
Physical Therapy Evaluation Rehab PT IP Evaluation Start: 12/30/24 12:42 Freq: ONCE Status: Active Protocol: Document 12/30/24 13:49 MARIOLAWILLIAM (Rec: 12/30/24 13:56 [email or web address] [id number]) Subjective/History History History Per H&P, This patient is a 59 -year-old male with a history of prior CVA, CAD status post CABG, type 2 diabetes, hypertension, hyperlipidemia presenting to the emergency department for evaluation with concern for left-sided weakness and slurred speech. Patient states that he has had intermittent issues with his left leg/dragging his heel for quite a while now, however he had new sensation of numbness and tingling all along the entire left side of his body and slurred speech that started 2 days ago. He states that he feels like he has restless legs on the whole left side of his body. Symptoms have improved a little bit, but he still feels like something is off over there and feels like he is trying to move his arm and leg to wake them up. No headache , vision changes, chest pain, abdominal pain, back pain, or other concerns. Subjective Subjective Pt is orientedx3. Pt reports that he lives in a home with his with 5 TOM. He reports that he was fully independent with all mobility prior to coming to the ED. He reports that he has both a walker and a cane but he does not use them. He reports that he is having weakness in his L leg and feels a little unsteady when he walks. He denies falls. He reports that he does not want to go anywhere therapy but would be open to outpatient therapy. New diagnosis of cancer in past 12 No months? Rehab PT IP Eval Objective Appearance Patient Behavior Appropriate,Patient Baseline Patient Orientation Person,Place,Time Difficulty following instructions none Speech Pattern Clear,Patient Baseline Ambulation Patient Able to Ambulate Yes Ambulation Observation IP General Gait Pattern Observation Decrease Weight Bear (L), Decrease Stride Lngth (R) Ambulation Distance (feet) 75 Ambulation Assistive Device None Ambulation Ability Contact Guard/Hand Hold Balance Ability to Arise Able, uses arms to help Sitting Balance Steady, safe Standing Balance Narrow stance w/o support Dynamic Sitting Balance Ability Good Dynamic Standing Balance Ability Good Transfers Bed Transfer Ability Supervision/Stand by Chair Transfer Ability Supervision/Stand by Sit to Stand Bed Transfer Ability Contact Guard/Hand Hold Rehab PT IP prob,goals,plan Problems Date of Evaluation: 12/30/24 PT IP Problems Bed Mobility,Transfers,Gait, Balance,Self care,Safety Rehab Potential Rehab Potential Good Equipment Needs Assistive Devices None / NA Plan PT Intervention Plan Bed Mobility,Transfers,Gait, Balance,Self care,Safety, Therapeutic Exercise PT Plan Frequency BID Duration LOS Discharge Goals Bed Transfer Ability Independent Sit to Stand Chair Transfer Ability Independent Ambulation Assistive Device None Ambulation Distance (feet) 100 Discharge Plan PT Discharge Plan PT is recommending discharge to home with outpatient therapy for continued left UE and LE strengthening, gait/ transfer training and balance training when deemed medically stable. Pt would benefit from skilled PT during his acute stay. Eval Complexity Eval Charge Codes 79082 - Moderate Complexity PHYSICIAN CERTIFICATION: I certify the specified therapy services for Harman Zuñiga are required, authorized, and reviewed every 30 days.
[2024-12-30 14:14] VITALS: BP 106/88; PULSE 86; RESP 20; TEMP 36.6; O2SAT 96
--- NOTE | 2024-12-30 14:26 | HMH.OTEV ---
OT Inpatient Evaluation Rehab OT IP Evaluation Start: 12/30/24 12:42 Freq: ONCE Status: Active Protocol: Document 12/30/24 14:17 HARVEY (Rec: 12/30/24 14:25 [email or web address] [id number]) Rehab OT IP Assessment Subjective History 59 year old male referred to skilled OT services after s/p Acute infarct in the right lateral [place] measuring 10 mm in size. Scattered chronic lacunar infarcts and mild changes of ischemic microvascular disease bilaterally. Patient was independent with ADLs and fx'l mobility prior to hospitalization. Patient reported this is the third CVA affecting L side weakness. Subjective I can get up. Instructed Patient on safety awareness to complete bed mobility from supine->sit @ EOB->stand with CGA. Patient maneuver throughout facility ~ 75ft with CGA. No LOB noted. Left Patient sitting upright in bed with needs met. Objective Patient Orientation Person,Name,Birthday Right Upper Extremity Gross ROM WFL Left Upper Extremity Gross ROM WFL Bed Mobility bed mobility - supine/sit Assist Level Supervision/Stand by Transfer Training Sit/Stand/Step Transfer Assist Level Contact Guard/Hand Hold Chair Transfer Ability Contact Guard/Hand Hold Rehab OT IP prob,goals,plan Problems Date of Evaluation: 12/30/24 OT IP Problems Bed Mobility,Transfers,Balance ,Self care,Safety Rehab Potential Rehab Potential Good Plan OT intervention Plan Bed Mobility,Transfers,Balance ,Self care,Safety,Therapeutic Exercise OT Plan Frequency Daily Duration LOS Discharge Goals Bed Mobility Ability Independent Sit to Stand Chair Transfer Ability Independent Chair Transfer Ability Independent Chair Transfer Technique Sit to/from Ambulatory Chair Transfer Assistive Devices None Discharge Plan OT Discharge Plan Recommend OP rehab services this date. Patient will continue skilled OT Services while here at [facility] medical d/c. Eval Complexity Eval Charge Codes 28304 - Low Complexity PHYSICIAN CERTIFICATION: I certify the specified therapy services for Harman Zuñiga are required, authorized, and reviewed every 30 days.
== END 2024-12-30 14:15 | disposition home or self-care (01) ==
PROVIDERS: Emergency Provider Emergency Medicine
DX: I63.50 Cerebral infarction due to unspecified occlusion or stenosis of unspecified cerebral artery (principal); G81.94 Hemiplegia, unspecified affecting left nondominant side; R29.810 Facial weakness; R47.81 Slurred speech; R20.2 Paresthesia of skin; Z72.0 Tobacco use
CPT/HCPCS: 70450; 70496; 70498; 70551; 80053; 80061; 80307; 80320; 81001; 84484; 85025; 85610; 85730; 86803; 87389; 93005; 99291; G0480; Q9967

== ENCOUNTER 2025-01-31 13:00 | Outpatient (RCR) | payer MEDICARE, SELFPAY ==
--- NOTE | 2025-01-04 16:02 | HMH.PTOPEV ---
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 The pt presented to [facility] ED and was discharged to home on the same day. The pt reports that he has gotten worse since leaving the ER. He reports that he is unable to use his left arm for almost anything. His left leg has more function and than his arm but still feels weak. He reports that he has spent the majority of the last week sitting in a recliner and only making short walks to/from the bathroom. He reports that he had one fall since coming home and reports, i got my feet tangled up. I was able to get myself up from the floor but it was hard. Pt reports that he has been using a SP cane for a couple of days, which has helped his balance. PMH: history of prior CVA, CAD status post CABG, type 2 diabetes, hypertension, hyperlipidemia New diagnosis of cancer in past 12 No months? Chief Complaint Weakness Current Functional Limitations Lifting,Housework,Dressing, Driving,Standing,Squatting, Walking,Stairs,Balance Level of pain today (0-10) 0 Pain scale - at its best (0-10) 0 Pain scale - at its worst (0-10) 0 Balance Eval Prior Functional Limitations Prior Functional [place] Level Fully IND at baseline. Hx of Falls Hx Falls Yes Number in last 6 months 1 Gait/Posture Asssessment General Gait Observation Shuffling Step,Decrease Weight Bear (L),Decrease Stride Lngth (R) Assistive Devices Straight Cane Level of Transfer Assist Standby Assistance Hip Observation in Gait Swing Decreased Flexion Ankle/Foot Observation in Gait Swing Decreased Foot Clearance Timed Up and Go Test 1. Is the Timed Up and Go test result > yes or = to 12 seconds? Dynamic Gait Index Test Protocol Gait Level Surface Moderate Impairement Query Text: Instructions: Walk at your normal speed from here to the next stacy (20'). Grading: Stacy the lowest category that applies. Change in Gait Speed Moderate Impairment Query Text: Instructions: Begin walking at your normal pace (for 5'), when I tell you go , walk as fast as you can (for 5'). When I tell you slow , walk as slowly as you can (for 5'). Grading: Stacy the lowest category that applies. Gait with Horizontal Head Turns Moderate Impairment Query Text: Instructions: Begin walking at your normal pace. When I tell you to look right , keep walking straight, but turn you head to the right. Keep looking to the right unit I tell you look left , then keep walking straight and turn your head to the left. Keep your head to the left until I tell you look straight , then keep walking straight, but return you head to the center. Grading: Stacy the lowest category that applies. Gait with Vertical Head Turns Mild Impairment Query Text: Instructions: Begin walking at your normal pace. When I tell you to look up , keep walking staight, but tip your head up. Keep looking up until I tell you to look down , then keep walking straight and tip your head down. Keep your head down until I tell you look straight , then keep walking straight, but return your head to the center. Grading: Stacy the lowest category that applies. Gait and Pivot Turn Moderate Impairment Query Text: Instructions: Begin walking at your normal pace. When I tell you turn and stop , turn as quickly as you can to face the opposite direction and stop. Grading: Stacy the lowest category that applies. Step Over Obstacle Mild Impairment Query Text: Instructions: Begin walking at your normal speed. When you come to the shoebox, step over it, not around it and keep walking. Grading: Stacy the lowest category that applies. Step Around Obstacles Moderate Impairment Query Text: Instructions: Begin walking at normal speed. When you come to the first cone (about 6' away), walk around the right side of it. When you come to the second cone (6' past first cone), walk around it to the left. Grading: Stacy the lowest category that applies. Steps Moderate Impairment Query Text: Instructions: Walk up these stairs as you would at home. At the top, turn around and walk down. Grading: Stacy the lowest category that applies. Scoring Dynamic Gait Index Score 10 Miscellaneous Dx PT Eval Objective Objective MMT: L Shoulder Flexion/ABD: 2/5 Elbow Flexion/Extension: 2/5 Hand Function: Poor Hip Flexion: 3/5 Hip Abduction: 2/5 Hip Adduction: 2/5 Knee Extension: 2/5 Knee Flexion: 2/5 Ankle PF: 3/5 Ankle DF: 2/5 Shoulder AROM: - Flexion 65 - Abduction 75 TUs with SP cane Outpatient Therapy Assessment Impairments Problems/Impairmments Impaired Strength,Impaired Endurance,Impaired Gait Pattern,Impaired Walking, Impaired Standing,Impaired Household Care,Impaired Stair Climbing,Impaired Squatting, Impaired Balance,Impaired DGI Score,Impaired TUG Time Prognosis Rehab Potential Fair Comment w HEP compliance Clinical Impression Consistent with Diagnosis Yes Consistent with R Pontine Stroke Short Term Goals Number of Weeks 4 Increase Range of Motion Yes: Shoulder AROM 50-75% WNL Increase Strength Yes: 3/5 to L UE and LE Improve Gait Pattern with Assistive Yes: Improved Foot Clearance Device during L swing Improve Ability to Climb Stairs Yes: Step to Step pattern with no apparent loss of balance Increase DGI Score Yes: to 15 Decrease TUG Time Yes: 24s with AAD Patient to be Ind w/ HEP Yes [place] [employer] Goals Number of Weeks 8 Increase Range of Motion Yes: 75-100% Arom of L Shoulder Increase Strength Yes: 3+-4/5 to L UE and LE Improve Gait Pattern with Assistive Yes: No Gait abnormalities Device with AAD. Improve Ability to Climb Stairs Yes: Step over step Pattern with no apparent loss of balance. Increase DGI Score Yes: to 20 Decrease TUG Time Yes: to 19s with AAD Patient to be Ind w/ Advanced HEP Yes Outpatient Therapy Plan of Care Treatment Plan May Include Therapeutic Exercise Including Home Yes Exercise Program Manual Therapy Techniques Yes Neuromuscular Re-education Yes Therapeutic Activities to Return to Yes Previous Functional/Work Level Gait Training Yes ADL/Self Care Education Yes Thermal Modalities Yes Electrical Stimulation Yes Ultrasound/Phonophoresis Yes Iontophoresis Yes Manual Lymphatic Drainage Yes Eval/Re-Eval Yes Frequency Times per week 2 Duration Number of Weeks 8 Addendums This patient is a candidate for social No or vocational rehab? Patient/Guardian verbally acknowledges Yes understanding of treatment program and consents to further treatment? Patient/Guardian verbally acknowledges Yes understanding of diagnosis, prognosis and goals for treatment? Eval Complexity PT Charges 79359 - High Complexity Shoulder/Elbow Eval Shoulder Objective Measurements Elbow Objective Measurements PHYSICIAN CERTIFICATION: I certify the specified therapy services for Harman Jannette Mayhenriettaier are required, authorized, and reviewed every 30 days.
== END 2025-01-31 23:59 | disposition home or self-care (01) ==
LOC: PT 13:00
PROVIDERS: Visit Provider Emergency Medicine
DX: I63.50 Cerebral infarction due to unspecified occlusion or stenosis of unspecified cerebral artery (principal)
CPT/HCPCS: 97110; 97112; 97163

== ENCOUNTER 2025-02-07 13:00 | Outpatient (RCR) | payer MEDICARE, SELFPAY ==
--- NOTE | 2025-02-08 07:24 | HMH.RHREAS ---
Rehab Reassessment Rehab OP Re-assessment Start: 02/02/25 13:03 Freq: Status: Active Protocol: Document 02/07/25 12:57 SILVIA (Rec: 02/07/25 17:39 SILVIA [id number]) E-signed By Jamil Noland PT Dynamic Gait Index Test Protocol Gait Level Surface Mild Impairment Query Text: Instructions: Walk at your normal speed from here to the next stacy (20'). Grading: Stacy the lowest category that applies. Change in Gait Speed Mild Impairment Query Text: Instructions: Begin walking at your normal pace (for 5'), when I tell you go , walk as fast as you can (for 5'). When I tell you slow , walk as slowly as you can (for 5'). Grading: Stacy the lowest category that applies. Gait with Horizontal Head Turns Mild Impairment Query Text: Instructions: Begin walking at your normal pace. When I tell you to look right , keep walking straight, but turn you head to the right. Keep looking to the right unit I tell you look left , then keep walking straight and turn your head to the left. Keep your head to the left until I tell you look straight , then keep walking straight, but return you head to the center. Grading: Stacy the lowest category that applies. Gait with Vertical Head Turns Moderate Impairment Query Text: Instructions: Begin walking at your normal pace. When I tell you to look up , keep walking staight, but tip your head up. Keep looking up until I tell you to look down , then keep walking straight and tip your head down. Keep your head down until I tell you look straight , then keep walking straight, but return your head to the center. Grading: Stacy the lowest category that applies. Gait and Pivot Turn Mild Impairment Query Text: Instructions: Begin walking at your normal pace. When I tell you turn and stop , turn as quickly as you can to face the opposite direction and stop. Grading: Stacy the lowest category that applies. Step Over Obstacle Normal Query Text: Instructions: Begin walking at your normal speed. When you come to the shoebox, step over it, not around it and keep walking. Grading: Stacy the lowest category that applies. Step Around Obstacles Normal Query Text: Instructions: Begin walking at normal speed. When you come to the first cone (about 6' away), walk around the right side of it. When you come to the second cone (6' past first cone), walk around it to the left. Grading: Stacy the lowest category that applies. Steps Moderate Impairment Query Text: Instructions: Walk up these stairs as you would at home. At the top, turn around and walk down. Grading: Stacy the lowest category that applies. Scoring Dynamic Gait Index Score 16 Rehab Re-assessment Subjective Subjective Pt reports that he has improved 30-40%. He reports that he is walking much better . He reports that he is walking without the cane at times. He reports that he is able to negotiate the steps much better than he was. He reports that he is improving in function of his L arm and hand. He reports that his biggest difficulty is still the function of his L shoulder , his dexterity. Objective Objective Notes DGI: 16 (10 on IE) TUs without AD, (31s with SP cane on IE) Gait Assessment: slightly decreased hip flexion of LLE during swing phase. Symmetric step length. Uses SP cane intermittently. Strength: L UE: - shldr Flexion: 2/5 - Shoulder ABD: 2/5 - Elbow Flexion: 5/5 - Wrist Flexion: 3+/5 - Wrist Extension: 3+/5 L LE: - Hip Flexion: 4/5 - Hip ABD: 3+/5 - Hip ADD 3+/5 - Knee Extension: 4/5 - Knee Flexion: 4/5 - Ankle DF: 4/5 - Ankle PF: 3/5 L shoulder ROM: - Flexion 110 - Abduction 114 Assessment Progress Assessment Progressing as Expected Assessment Notes Pt is progressing as expected. He has demonstrated significant improvements in his gait, balance, strength, ROM and reported levels of function. He continues to demonstrate difficulty with fine motor skills in his L hand and his L shoulder ROM. He also continues to present as a fall risk, albeit improved from initial evaluation. The pt would benefit from continued PT to continue to address the pt's remaining impairments and return to PLOF. Patient goals met ST,3,4,5,6,7 LT Plan Plan Continue as per initial POC Frequency of Therapy 2/week Duration of therapy 4 weeks Time and Billing Re-Eval Time 9 Re-Eval Billing Units 0 Charge for PT reassessment? No PHYSICIAN CERTIFICATION: I certify the specified therapy services for Harman L Mayhenriettaier are required, authorized, and reviewed every 30 days.
== END 2025-02-09 23:59 | disposition home or self-care (01) ==
LOC: PT 13:00
PROVIDERS: Visit Provider Emergency Medicine
DX: I63.50 Cerebral infarction due to unspecified occlusion or stenosis of unspecified cerebral artery (principal)
CPT/HCPCS: 97110; 97112; 97530

== ENCOUNTER 2025-03-23 15:00 | Outpatient (RCR) | payer MEDICARE, SELFPAY ==
--- NOTE | 2025-03-07 15:01 | HMH.RHREAS ---
Rehab Reassessment Rehab OP Re-assessment Start: 03/07/25 13:49 Freq: Status: Active Protocol: Document 03/07/25 14:54 SILVIA (Rec: 03/07/25 15:01 SILVIA [id number]) E-signed By Jamil Noland PT Dynamic Gait Index Test Protocol Gait Level Surface Mild Impairment Query Text: Instructions: Walk at your normal speed from here to the next stacy (20'). Grading: Stacy the lowest category that applies. Change in Gait Speed Normal Query Text: Instructions: Begin walking at your normal pace (for 5'), when I tell you go , walk as fast as you can (for 5'). When I tell you slow , walk as slowly as you can (for 5'). Grading: Stacy the lowest category that applies. Gait with Horizontal Head Turns Normal Query Text: Instructions: Begin walking at your normal pace. When I tell you to look right , keep walking straight, but turn you head to the right. Keep looking to the right unit I tell you look left , then keep walking straight and turn your head to the left. Keep your head to the left until I tell you look straight , then keep walking straight, but return you head to the center. Grading: Stacy the lowest category that applies. Gait with Vertical Head Turns Normal Query Text: Instructions: Begin walking at your normal pace. When I tell you to look up , keep walking staight, but tip your head up. Keep looking up until I tell you to look down , then keep walking straight and tip your head down. Keep your head down until I tell you look straight , then keep walking straight, but return your head to the center. Grading: Stacy the lowest category that applies. Gait and Pivot Turn Normal Query Text: Instructions: Begin walking at your normal pace. When I tell you turn and stop , turn as quickly as you can to face the opposite direction and stop. Grading: Stacy the lowest category that applies. Step Over Obstacle Normal Query Text: Instructions: Begin walking at your normal speed. When you come to the shoebox, step over it, not around it and keep walking. Grading: Stacy the lowest category that applies. Step Around Obstacles Normal Query Text: Instructions: Begin walking at normal speed. When you come to the first cone (about 6' away), walk around the right side of it. When you come to the second cone (6' past first cone), walk around it to the left. Grading: Stacy the lowest category that applies. Steps Mild Impairment Query Text: Instructions: Walk up these stairs as you would at home. At the top, turn around and walk down. Grading: Stacy the lowest category that applies. Scoring Dynamic Gait Index Score 22 Rehab Re-assessment Subjective Subjective Pt reports that he is approximately 75% improved. Reports that he has improved significantly with his walking and he is able to mow the lawn and walk his dog. Reports that he also has stopped using the cane entirely. Reports that he would like to continue with therapy for a little longer. Objective Objective Notes DGI: 22 (16 on IE) TUs without AD, (16s at last RA) Gait Assessment: slightly decreased hip flexion of LLE during swing phase. Symmetric step length. Improved mariela and velocity. Strength: L UE: - shldr Flexion: 2+/5 - Shoulder ABD: 2+/5 - Elbow Flexion: 5/5 - Wrist Flexion: 4+/5 - Wrist Extension: 4/5 L LE: - Hip Flexion: 4+/5 - Hip ABD: 4/5 - Hip ADD 4/5 - Knee Extension: 4+/5 - Knee Flexion: 4/5 - Ankle DF: 4+/5 - Ankle PF: 4+/5 Assessment Progress Assessment Progressing as Expected Assessment Notes Pt is progressing as expected. He has demonstrated significant improvements in his gait, balance, strength, ROM and reported levels of function. He continues to demonstrate difficulty with fine motor skills, however these are significantly improved from initial evaluation. His gait, balance and LE strength has improved greatly. Skilled PT remains indicated for this pt to continue to improve. Patient goals met ST/7 LT,5,6 Plan Plan Continue as per initial POC Frequency of Therapy 1-2/week Duration of therapy 2-4 weeks Time and Billing Re-Eval Time 9 Re-Eval Billing Units 1 Charge for PT reassessment? Yes PHYSICIAN CERTIFICATION: I certify the specified therapy services for Harman Zuñiga are required, authorized, and reviewed every 30 days.
== END 2025-03-23 23:59 | disposition home or self-care (01) ==
LOC: PT 15:00
PROVIDERS: Visit Provider Emergency Medicine
DX: I63.50 Cerebral infarction due to unspecified occlusion or stenosis of unspecified cerebral artery (principal)
CPT/HCPCS: 97164

== ENCOUNTER 2025-04-01 13:56 | Outpatient (CLI) | payer MEDICARE, SELFPAY ==
--- NOTE | 2025-04-01 14:00 | XR_ITS ---
FINAL REPORT CLINICAL HISTORY: lt wrist pain COMPARISON: None FINDINGS: Three views of the left wrist were obtained. There is no acute fracture or dislocation. Moderately advanced hypertrophic changes of osteoarthritis of the basilar joint. There is no acute soft tissue abnormality. Mild vascular calcifications are noted. IMPRESSION: Advanced osteoarthritis without acute abnormality identified. Reviewed, Interpreted and Dictated by Taz Vernon MD Transcribed by Norma Angel Authenticated and [facility]
--- NOTE | 2025-04-01 14:00 | XR_ITS ---
FINAL REPORT CLINICAL HISTORY: lt arm pain COMPARISON: None FINDINGS: 2 views of the left forearm were obtained. There is no acute fracture or dislocation. The joints are intact. There is a 4 mm metallic density structure in the anterior mid forearm anterior to the mid radial diaphysis consistent with foreign body. IMPRESSION: No acute bony abnormality. Radiopaque foreign body as above. Reviewed, Interpreted and Dictated by Taz Vernon MD Transcribed by Norma Angel Authenticated and [facility]
== END 2025-04-01 23:59 | disposition home or self-care (01) ==
PROVIDERS: PCP Nurse Practitioner Family; Visit Provider Nurse Practitioner Family
DX: M19.032 Primary osteoarthritis, left wrist (principal); S50.852A Superficial foreign body of left forearm, initial encounter
CPT/HCPCS: 73090; 73110